=== PATIENT | female | born 1940 | race Caucasian/White ===

== ENCOUNTER 2018-11-23 00:12 | Inpatient (IN) | payer OTHER ==
[2018-11-23] VITALS (13 sets, daily range): BP systolic 114–180; BP diastolic 46–79
[~2018-11-23] VITALS: Ht 157.4 cm; Wt 42.7 kg
[2018-11-23 03:17] LABS: BASO % 0.3 % (0.0-1.0); EOS % 0.1 % (1.0-4.0); HEMATOCRIT 41.2 % (37.0-47.0); HEMOGLOBIN 13.8 g/dl (12.0-16.0); LYMPH # 1.1 10*3/uL (1.3-4.4); LYMPH % 8.1 % (27.0-41.0); MEAN CELL VOLUME 89.4 fl (81.0-99.0); MEAN CORPUSCULAR HGB 29.9 pg (27.0-31.0); MEAN CORPUSCULAR HGB CONC 33.5 g/dl (33.0-37.0); MEAN PLATELET VOLUME 11.7 fl (9.6-12.3); MONO # 0.7 10*3/uL (0.1-1.0); MONO % 5.3 % (3.0-9.0); NEUT # 11.7 10*3/uL (2.3-7.9); NEUT % 85.7 % (47.0-73.0); PLATELET COUNT AUTOMATED 158 10*3/uL (130-400); RED BLOOD COUNT 4.61 10*6/uL (4.10-5.10); RED CELL DISTRI WIDTH 13.2 % (0-14.5); WHITE BLOOD COUNT 13.7 10*3/uL (4.8-10.8)
[2018-11-23 03:32] LABS: ALBUMIN 3.6 gm/dl (3.1-4.5); ALKALINE PHOSPHATASE 103 U/L (45-117); BUN 14 mg/dl (7-24); CHLORIDE 98 mmol/L (98-107); CREATININE 0.75 mg/dL (0.55-1.02); POTASSIUM 3.7 mmol/L (3.5-5.1); SGOT/AST 12 IU/L (3-35); SGPT/ALT 22 U/L (12-78); SODIUM 135 mmol/L (136-145)
--- NOTE | 2018-11-23 04:28 | NUR ---
PER DO CITLALLI AGUILERA PT TO BE STARTED ON 1L NS AND PROVIDED INSULIN COVERAGE FOR HER BLOOOD GLUCOSE LEVEL OF 421.PT MEDICATD PER SLIDING SCALE IN EMAR WITH 22 UNITS HUMALOG SQ AND 1 LITER NS INITIATED @ 999ML/HR.
[2018-11-23 05:43] LABS: PHOSPHOROUS 2.8 mg/dL (2.5-4.9)
--- NOTE | 2018-11-23 05:44 | NUR ---
RECEIVED REPORT FROM SUSY, AWAITING BED PLACEMENT, WAS TOLD BY CUSTOMER EXPERIENCE CONSULTANT PT IS TO STAY IN ED ED HOLD "UNTIL DAYLIGHT GETS HERE AND SETTLED"
[2018-11-23 05:53] LABS: THYROID STIM HORMONE (HS) 1.76 uIU/ml (0.358-4.75)
--- NOTE | 2018-11-23 07:10 | NUR ---
REPORT RECEIVED FROM KNITTING TEACHER RN.
[2018-11-23 08:16] LABS: VITAMIN D, 25-HYDROXY 13.4 ng/mL (30-100)
--- NOTE | 2018-11-23 08:30 | NUR ---
A 78, admitted to , under the services of МАРИЯ Rivera DO with a diagnosis of SUBCAPITAL FRACTURE OF RIGHT FEMUR. Chief complaint is PAIN TO RIGHT HIP AREA. Patient arrived via bed from ER. Monitor applied. Initial assessment completed. Vital signs taken and recorded. МАРИЯ RIVERA DO notified of admission to the unit. Orders received. See assessment for past medical history, medications and allergies. Patient and/or family oriented to unit. [facility] reviewed. Clothing/patient valuable form completed. GHAZALA BUCHANAN
--- NOTE | 2018-11-23 09:51 | NUR ---
PATIENT MEDICATED WITH IV MORPHINE FOR COMPLAINTS OF 8/10 PAIN IN RIGHT LOWER EXTREMITY. WILL MONITOR FOR EFFECTIVENESS.
[2018-11-23 10:17] LABS: BILIRUBIN NEGATIVE (NEGATIVE); BLOOD 2+ (NEGATIVE); CLARITY SL CLOUDY (CLEAR); COLOR YELLOW (YELLOW); GLUCOSE 3+ (NEGATIVE); KETONE TRACE (NEGATIVE); LEUKO ESTERASE NEGATIVE (NEGATIVE); NITRITE POSITIVE (NEGATIVE); PH 6.5 (5.0-9.0); SPECIFIC GRAVITY 1.015 (1.005-1.030); UROBILINOGEN 0.2 E.U./dl (0.2-1.0)
--- NOTE | 2018-11-23 10:30 | NUR ---
PAIN MEDICATION HAS BEEN EFFECTIVE.
[2018-11-23 10:33] LABS: MUCOUS TRACE
--- NOTE | 2018-11-23 12:09 | NUR ---
SPOKE WITH ; PATIENT OK TO BE TAKEN TO SURGERY THIS AFTERNOON WITH .
--- NOTE | 2018-11-23 13:25 | NUR ---
PATIENT TAKEN DOWN TO SURGERY AT THIS TIME.
--- NOTE | 2018-11-23 17:39 | NUR ---
PHYSICAL THERAPY Nursing screen received and chart reviewed. Please order PT evaluation following orthopedic consultation/surgery. Thank you. Laura Real,PT,DPT.
--- NOTE | 2018-11-23 18:00 | NUR ---
RETURNED FROM SURGICAL UNIT. VUTAL SIGNS STABLE PATIENT COMPLAINING OF GENERALIZED DISCOMFORT. REPOSITIONED NON EFFECTIVE. MEDICATED WITH MORPHINE PER ORDERS AND REQUEST CALL LIGHT WITHIN REACH
--- NOTE | 2018-11-23 19:07 | NUR ---
NOTIFIED OF CRITICAL TROPONIN, ORDERS OBTAINED FOR REPEATS IN 3 HRS
--- NOTE | 2018-11-23 20:00 | NUR ---
SLEEPING. RESP EASY AND REG.
--- NOTE | 2018-11-23 23:12 | NUR ---
MORPHINE GIVEN PER ORDER FOR RIGHT HIP PAIN PT. RATED 8/10. ICE PACK TO RIGHT HIP. TUBE DIRECTOR RIVER RESTORATION BILAT LOWER LEGS. LOWER LEGS ELEVATED ON PILLOW. BSG 230 AND 5 UNITS INSULIN GIVEN.
[2018-11-24] VITALS: BP 120/55
--- NOTE | 2018-11-24 03:19 | NUR ---
24 HR chart check completed.
[2018-11-24 07:15] LABS: ALBUMIN 2.8 gm/dl (3.1-4.5); ALKALINE PHOSPHATASE 67 U/L (45-117); BUN 19 mg/dl (7-24); CHLORIDE 110 mmol/L (98-107); CREATININE 0.64 mg/dL (0.55-1.02); POTASSIUM 4.2 mmol/L (3.5-5.1); SGOT/AST 16 IU/L (3-35); SGPT/ALT 18 U/L (12-78); SODIUM 142 mmol/L (136-145); TOTAL PROTEIN 5.7 gm/dL (6.4-8.2)
[2018-11-24 07:46] LABS: BASO % 0.2 % (0.0-1.0); HEMATOCRIT 37.4 % (37.0-47.0); HEMOGLOBIN 12.3 g/dl (12.0-16.0); LYMPH # 1.1 10*3/uL (1.3-4.4); LYMPH % 9.3 % (27.0-41.0); MEAN CELL VOLUME 92.1 fl (81.0-99.0); MEAN CORPUSCULAR HGB 30.3 pg (27.0-31.0); MEAN CORPUSCULAR HGB CONC 32.9 g/dl (33.0-37.0); MEAN PLATELET VOLUME 12.6 fl (9.6-12.3); MONO # 0.9 10*3/uL (0.1-1.0); MONO % 7.2 % (3.0-9.0); PLATELET COUNT AUTOMATED 138 10*3/uL (130-400); RED BLOOD COUNT 4.06 10*6/uL (4.10-5.10); RED CELL DISTRI WIDTH 13.8 % (0-14.5); WHITE BLOOD COUNT 12.1 10*3/uL (4.8-10.8)
[2018-11-24 08:00] VITALS: BP 110/72
--- NOTE | 2018-11-24 10:42 | NUR ---
STEPHANIE received notice patient is wanting SNF at [facility]. MASTER IN [employer]ANCERY faxed referral, however will need PT/OT Evals to complete. Patient does require a PRECERT. -STEPHANIE Griggs
--- NOTE | 2018-11-24 11:05 | NUR ---
PHYSICAL THERAPY Physical therapy evaluation complete, 5E. Full evaluation/details to follow. Moderate complexity PT evaluation (53485) per chart review and evaluation. PT to progress transfers, gait, LE strength, and safety per POC. Recommend SNF at discharge. Thank you. Laura Real,PT,DPT
--- NOTE | 2018-11-24 11:05 | NUR ---
Occupational Therapy evaluation completed on 5 with full eval to follow. Precautions include right hip fracture and no more than 100# weight bearing on RLE w/ WW, fall risk; bed alarm, IV UE,segundo catheter,high complexity level 40722 via chart review, testing and evaluation. Recommend OT per POC and SNF to enable return home at safe and indep level. Thank you. Rita Mednia OTR/l
[2018-11-24 12:00] VITALS: BP 115/48
--- NOTE | 2018-11-24 13:06 | NUR ---
OT NOTE PATIENT IDNETIFIED BY NAME AND DATE OF . PATIENT COMPLETED 19 MINUTES OT THIS DATE. PATIENT SEATED IN RECLINER UPON ARRIVAL. PATIENT COMPLETED DYNAMIC STAND BALANCE USE FWW SUPPORT CGA USE FWW APPROX 1 MINUTE FOR OVERALL INCREASE INDEPENDENCE WITH ADL TASK. COMPLETED BUE STRENGTHENING TOWEL EXERCISES 2 SETS X 15 REPS SEATED EOB FOR INCREASE INDEPENDENCE WITH FUNCTIONAL XFER TASKS. COMPLETED SIT TO SUPINE ON BED MOD A USE RAIL. COMPLETED GROOMING SEATED UP RIGHT IN BED WASH FACE SET-UP. CONTINUE TOWARDS PLAN OF CARE. NELIA TAYLOR/Robert
--- NOTE | 2018-11-24 13:08 | NUR ---
PHYSICAL THERAPY Patient seen this pm 1:1 for therapy visit and was sitting up in bedside chair upon therapist arrival. Patient presents with continuos IV treatment and reports no c/o's pain secondary to receiving recent pain meds. Patient was very pleasant transfering sit to stand with Mod A x 1, requiring v/c for proper hand placement. Patient instructed on walker safety / navigation and ambulated 15'x 1, wh walker, MIN A, demonstrating "step to" gait pattern, uneven stride and "slouched" upright posture. Patient returned to supine in bed with increased fatigue and was very pleased with her gait performance. Patient remained in bed with her call light, tray table, telephone and bed alarm for safety. Will continue per POC as tolerated, total treatment time 14 minutes. Aubrey Madrid, VARNISH MELTER
--- NOTE | 2018-11-24 13:35 | NUR ---
Energy Efficiency Finance Manager in to talk to patient. Patient states lives at HOME with BOYFRIEND. There are NO steps in the home. Physician: NONE AT THIS TIME Pharmacy: [facility] Home health services: NONE Patient's level of ADLs: INDEPENDENT Patient has working utilities: YES DME: HAS CANE BUT DOES NOT USE IT MUCH Follow-up physician's appointment after d/c: WILL NEED TO FIND PCP AND MAKE APPOINTMENT Does patient want to access PORTAL?: NO Discharge plan PT LIVES AT HOME WITH HER BOYFRIEND. PT IS REQUESTING A REFERRAL TO [facility] TO HAVE REHAB FOR FEMUR FRACTURE. [facility]ER NOTIFIED AND WILL SEND REFERRAL. WILL CONTINUE TO FOLLOW.. ANEL ALEMAN
--- NOTE | 2018-11-24 15:10 | NUR ---
PT MEDICATED WITH NORCO AT THIS TIME UPON REQUEST FOR COMPLAINTS OF PAIN IN RIGHT HIP 09/20. WILL MONITOR.
--- NOTE | 2018-11-24 15:18 | NUR ---
PROCUREMENT ANALYST faxed PT/OT EVALs and updates to [facility]. Patient will require a PRECERT.-STEPHANIE Griggs
[2018-11-24 16:00] VITALS: BP 150/57
[2018-11-24 20:00] VITALS: BP 121/53
[2018-11-25] VITALS: BP 106/56
[2018-11-25 06:47] LABS: BUN 16 mg/dl (7-24); CHLORIDE 108 mmol/L (98-107); CREATININE 0.53 mg/dL (0.55-1.02); POTASSIUM 3.5 mmol/L (3.5-5.1); SODIUM 138 mmol/L (136-145)
[2018-11-25 06:48] LABS: BASO % 0.3 % (0.0-1.0); EOS # 0.2 10*3/uL (0.0-0.4); EOS % 1.6 % (1.0-4.0); HEMATOCRIT 37.7 % (37.0-47.0); HEMOGLOBIN 12.4 g/dl (12.0-16.0); LYMPH % 19.6 % (27.0-41.0); MEAN CELL VOLUME 90.6 fl (81.0-99.0); MEAN CORPUSCULAR HGB 29.8 pg (27.0-31.0); MEAN CORPUSCULAR HGB CONC 32.9 g/dl (33.0-37.0); MEAN PLATELET VOLUME 12.3 fl (9.6-12.3); MONO # 0.8 10*3/uL (0.1-1.0); MONO % 7.4 % (3.0-9.0); NEUT # 7.2 10*3/uL (2.3-7.9); NEUT % 70.7 % (47.0-73.0); PLATELET COUNT AUTOMATED 129 10*3/uL (130-400); RED BLOOD COUNT 4.16 10*6/uL (4.10-5.10); RED CELL DISTRI WIDTH 13.6 % (0-14.5); WHITE BLOOD COUNT 10.2 10*3/uL (4.8-10.8)
[2018-11-25 08:00] VITALS: BP 135/69
--- NOTE | 2018-11-25 08:10 | NUR ---
Alert and oriented x3. Dressing to rt hip dry and intact. Pt states she would like something for pain after she eats breakfast. States she would like norco, explained next time could be given at 0940. Verbalized understanding. States pain 4/10, states pain is increased with movement and she also has been having muscle spasms off and on which are painful as well.
--- NOTE | 2018-11-25 09:00 | NUR ---
PHYSICAL THERAPY PATIENT SEEN TODAY IN ROOM FOR 1:1 TREATMENT. SEEN FOR THER EX FOR BLE'S FOR 3 SETS OF 10 REPS INCLUDING AAROM AND AROM. BED MOBITILY TRAINING WITH MIN/MOD OF 1 AND TRANSFER TRAINING FROM BED TO CHAIR WITH MAX OF 1 WITH PWB AND 25% CUES FOR TECHNIQUE. PLACED UP IN RECLINER WITH CLIP ALARM IN PLACE, CALL LIGHT IN REACH AND NURSING MADE AWARE, EDUCATED ON EXERCISES TO DO THROUGHOUT THE DAY AND TO CALL FOR ASSISTANCE. PRINCESS BEAVER PT
--- NOTE | 2018-11-25 09:56 | NUR ---
Monitor and ivf dc per orders. Pt is sitting up in chair family visiting.
--- NOTE | 2018-11-25 11:35 | NUR ---
DR. Valadez in and examined pt. Spoke with pt regarding plan of care.
[2018-11-25 12:00] VITALS: BP 125/50
--- NOTE | 2018-11-25 13:51 | NUR ---
Medicated with norco per prn order for complaints of rt hip/ leg pain, states pain is 7/10.
--- NOTE | 2018-11-25 14:30 | NUR ---
States that norco helped to relieve pain somewhat. Denies need for anything further at this time.
[2018-11-25 16:00] VITALS: BP 125/57
--- NOTE | 2018-11-25 16:47 | NUR ---
Pt c/o pain. Notified that next dose of norco is due in about an hour but morphine was available. States pain is 7/10 at this time. Attempted to medicate with morphine but iv site leaking.
--- NOTE | 2018-11-25 17:21 | NUR ---
IV started left forearm with #20 angiocath after 1 attempts. The IV site was prepped with Chloraprep. Heparin lock attached. Sterile dressing applied. Patient tolerated precedure well. Procedure performed according to [facility] policy & procedure. Morphine iv given per prn order for pain to rt leg rated 7/10.
[2018-11-25 20:00] VITALS: BP 119/53
--- NOTE | 2018-11-25 20:26 | NUR ---
PATIENT MEDICATED WITH PRN NORCO FOR C/O PAIN. WILL MONITOR
--- NOTE | 2018-11-25 21:26 | NUR ---
MEDICATION EFFECTIVE PER PATIENT
[2018-11-26] VITALS: BP 149/65
--- NOTE | 2018-11-26 01:11 | NUR ---
PATIENT RESTING IN BED WITH NO S/S OF DISTRESS. BED IN LOWEST POSITION,CALL LIGHT IN REACH
--- NOTE | 2018-11-26 02:38 | NUR ---
medicated with prn norco for c/o pain. will monitor
[2018-11-26 06:40] LABS: BASO % 0.3 % (0.0-1.0); EOS # 0.2 10*3/uL (0.0-0.4); HEMATOCRIT 33.5 % (37.0-47.0); HEMOGLOBIN 11.3 g/dl (12.0-16.0); LYMPH % 23.1 % (27.0-41.0); MEAN CELL VOLUME 90.3 fl (81.0-99.0); MEAN CORPUSCULAR HGB 30.5 pg (27.0-31.0); MEAN CORPUSCULAR HGB CONC 33.7 g/dl (33.0-37.0); MEAN PLATELET VOLUME 12.5 fl (9.6-12.3); MONO # 0.7 10*3/uL (0.1-1.0); MONO % 7.7 % (3.0-9.0); NEUT # 5.8 10*3/uL (2.3-7.9); NEUT % 66.6 % (47.0-73.0); PLATELET COUNT AUTOMATED 119 10*3/uL (130-400); RED BLOOD COUNT 3.71 10*6/uL (4.10-5.10); RED CELL DISTRI WIDTH 13.5 % (0-14.5); WHITE BLOOD COUNT 8.7 10*3/uL (4.8-10.8)
[2018-11-26 06:44] LABS: ALBUMIN 2.4 gm/dl (3.1-4.5); BUN 11 mg/dl (7-24); CHLORIDE 108 mmol/L (98-107); CREATININE 0.44 mg/dL (0.55-1.02); POTASSIUM 3.5 mmol/L (3.5-5.1); SGOT/AST 15 IU/L (3-35); SGPT/ALT 12 U/L (12-78); SODIUM 139 mmol/L (136-145); TOTAL PROTEIN 5.3 gm/dL (6.4-8.2)
[2018-11-26 06:45] LABS: ALKALINE PHOSPHATASE 63 U/L (45-117)
[2018-11-26 08:00] VITALS: BP 118/50
--- NOTE | 2018-11-26 08:09 | NUR ---
PT SITTING UP IN BED. EATING BREAKFAST. WILL MONITOR
--- NOTE | 2018-11-26 08:30 | NUR ---
PHYSICAL THERAPY PATIENT SEEN TODAY FOR 1:1 TREATMENT IN ROOM. TREATMENT CONSISTS OF BLE THER EX INCLUDING AAROM, AROM AND SOME PROGRESSIVE RESISTIVE EXERCISES FOR NON SURGICAL LE. BED MOBILITY INCLUDNIG ROLLING L AND R AND SAT ON EDGE OF BED FOR SEATED LE EXERCISES WELL. STS AT SIDE OF BED WITH FWW FOR 3 BOUTS OF 30 SEC EACH TODAY WITH PWB ON SURGICAL LE. DID NOT WANT TO GET UP IN RECLINER YET THIS AM. AT THIS TIME PATIENT MAKING STEADY PROGRESS. D.C RECOMMEMDATIONS REMAIN FOR SNF ON D/C. PRINCESS BEAVER PT
--- NOTE | 2018-11-26 11:04 | NUR ---
PT REQUESTED AND GIVEN NORCO FOR C/O RIGHT LE PAIN. PT RATES PAIN 6/10 WILL MONITOR
[2018-11-26 12:00] VITALS: BP 155/68
--- NOTE | 2018-11-26 13:37 | NUR ---
NORCO HELPED PER PT WILL MONITOR
--- NOTE | 2018-11-26 15:46 | NUR ---
PT REQUESTED AND GIVEN NORCO FOR C/O RIGHT LE PAIN/ WILL MONITOR PT RATES PAIN 10/21
[2018-11-26 16:00] VITALS: BP 133/64
--- NOTE | 2018-11-26 18:16 | NUR ---
JOE HELPED/ WILL MONITOR
[2018-11-26 20:00] VITALS: BP 151/55
--- NOTE | 2018-11-26 20:03 | NUR ---
MEDICATED WITH PRN NORCO FOR C/O PAIN IN RIGHT HIP. WILL MONITOR
--- NOTE | 2018-11-26 21:57 | NUR ---
NORCO EFFECTIVE PER PATIENT
[2018-11-27] VITALS: BP 162/71
--- NOTE | 2018-11-27 05:44 | NUR ---
MEDICATED WITH PRN NORCO FOR C/O PAIN. WILL MONITOR
[2018-11-27 08:00] VITALS: BP 164/70
--- NOTE | 2018-11-27 08:05 | NUR ---
OCEAN RESCUE LIEUTENANT faxed updates to [facility]. Patient requires a PRECERT. Awaiting PRECERT. -STEPHANIE Griggs
--- NOTE | 2018-11-27 08:20 | NUR ---
PHYSICAL THERAPY Patient seen this am 1:1 for therapy visit and was supine in bed following breakfast upon therapist arrival. Patient voices 5/10 R hip pain / discomfort prior to treatment and was very pleasant this morning. Patient transfers supine to sit EOB with MIN A x 1, then performed several sit to stand transfers MIN A. Patient demonstrated increased confidence in completing transfers with improved rise technique. Patient ambulates with use of wh walker, CGA, 15'x 1 to bathroom then additional 25'x 1, demonstrating "step to" gait pattern and decreased stride. Patient also fatigues quickly and returned to bedside chair with call light, tray table, telephone and body alarm. Will continue per POC as tolerated, total treatment time, total treatment time 17 minutes. Aubrey Madrid, VERTICA ARCHITECT
--- NOTE | 2018-11-27 08:20 | NUR ---
OT NOTE PATIENT IDNETIFIED BY NAME AND DATE OF . PATIENT COMPLETED 15 MINUTES OT THIS DATE. PATIENT LAYING IN BED UPON ARRIVAL. PATIENT COMPLETED BED MOBILITY TASK WITH MOD A AND HEAD OF BED RAISED. SHE REQUIRED MODERATE ASSISTANCE TO PLACE RIGHT SOCK ON FOOT AND REQUIRED MIN A FOR LEFT FOOT. PATIENT PUT ON UNDERGARMENTS WITH MODERATE ASSISTANCE. FUNCTIONAL MOBILITY ACTIVITY COMPLETED AMBULATING TO BATHROOM WITH CGA. MIN A REQUIRED FOR TOILET MOBILITY AND DRESSING. DYNAMIC STANDING BALANCE ACTIVITY COMPLETED FOR 1 MINUTE STANDING AT SINK TO WASH/DRY HANDS. PATIENT EDUCATED TO AMBULATE TO BATHROOM TO INCREASE INDEPENDENCE AND ENDURANCE. EDUCATED FOR PATIENT TO USE CALL [place] FOR ASSISTANCE WITH ALL MOBILITY. TREATMENT CONCLUDED WITH PATIENT SEATED IN ARMED CHAIR WITH ALARM ON. CONTINUE WITH POC. WILL REQUIRE SNF PLACEMENT. JUDSON BURNETT OTR/L
[2018-11-27 12:00] VITALS: BP 146/55
--- NOTE | 2018-11-27 13:15 | NUR ---
OT NOTE Patient was seen this date for 15 minutes of OT treatment. Patient was seated in chair with SHANK SCOURER upon OT arrival. Patient was agreeable to OT treatment. Patient completed functional sit/stand from the recliner Min A. Patient peformed functional mobility into bathroom with ww and Min A. Patient completed toilet transfer with verbal cues for safety throughout transfer. Patient had good carryover of education. Patient able to manage clothing and perform toileting hygiene with Min A for balance only. Patient performed grooming task in stance at sink, where her dynamic balance was challenged. Patient's balance had improved by end of OT treatment, where she required CGA for functional mobility back to bed. OT treatment concluded with patient supine in bed with HOB elevated, call araya in reach. Patient would benefit from continued OT treatment to maximize independence and safety with ADLs and functional mobility/transfers. May Castro, OTR/L
--- NOTE | 2018-11-27 13:20 | NUR ---
PHYSICAL THERAPY Patient seen this pm 1:1 for therapy visit and was sitting up in bedside chair upon therapist arrival. Patient reports increased c/o of R hip pain / discomfort 6/10, along with increased stiffness from prolonged sitting. Patient transfers sit to stand from low chair surface, Min A and ambulates with use of wh walker, CGA, 25'x 1 to bathroom, demonstrating slow, antalgic gait pattern. Patient needed v/c for increased stride with head up posture and returned 15'x 1 to supine in bed. Patient remained in bed with call light, tray table, telephone and bed alarm for safety. Will continue per POC as tolerated, total treatment time 16 minutes. Aubrey Madrid, FAST FOOD DELIVERY DRIVER
--- NOTE | 2018-11-27 14:30 | NUR ---
PT WILL GO TO [facility] WHEN MEDICALLY STABLE. WILL CONTINUE TO FOLLOW.
[2018-11-27] MEDS ORDERED: GOOD SENSE ASP325 MG PO (14:44)
[2018-11-27] MEDS ORDERED: XARELTO10 MG PO (14:44)
--- NOTE | 2018-11-27 14:46 | NUR ---
PT REQUESTED AND GIVEN NORCO FOR C/O RIGHT LE PAIN. PT RATES PAIN 6/10 WILL MONITOR
[2018-11-27] MEDS ORDERED: HYDROCODONE-AC1 EAC1 PO (14:57)
--- NOTE | 2018-11-27 15:32 | NUR ---
WHIP SAWYER was notified of patient discharge. WHIP SAWYER spoke with RN Morena. WHIP SAWYER spoke with the patient and patient family. WHIP SAWYER contacted [facility] for a 4:30 hand picker. WHIP SAWYER notifid the RN, Patient, Family, and [facility] of transport time. Will fax Demographics to [facility]. -STEPHANIE Griggs
--- NOTE | 2018-11-27 16:00 | NUR ---
[facility]MEPT[facility] TO CALL [facility] TO GIVE REPORT . CALL KEPT GOING TO BIBLICAL LANGUAGES PROFESSOR VOICEMAIL MESSAGE LEFT FOR THEM TO RETURN CALL FOR REPORT
--- NOTE | 2018-11-27 16:00 | NUR ---
REFUSED DC WOUND PHOTOS
--- NOTE | 2018-11-27 16:13 | NUR ---
Discharge instructions reviewed with patient/family. Patient receptive and verbalizes understanding. Follow-up care arranged. Written instructions given to patient/family. OVIDIO GALVEZ
--- NOTE | 2018-11-27 17:24 | NUR ---
REPORT CALLED TO [facility]
--- NOTE | 2018-11-28 07:46 | NUR ---
PHYSICAL THERAPY CO-SIGN I approve of the Physical Therapy notes written above. KALIE ROMERO PT, DPT
--- NOTE | 2018-11-28 08:09 | NUR ---
OCCUPATIONAL THERAPY CO-SIGN I approve of the Occupational Therapy notes written above. STORM RAMEY OTR/Robert
== END 2018-11-27 16:13 | disposition other institution (70) | DRG 481 ==
LOC: ED 00:12 → 5E 03:14 → EDHOLD 03:14 → 5E 08:42
PROVIDERS: Emergency Medicine; Student in an Organized Health Care Education/Training Program; ADMIT Internal Medicine
PROC: 0QH634Z Insertion of Internal Fixation Device into Right Upper Femur, Percutaneous Approach (ICD-10-PCS; principal; 2018-11-23)
DX: S72.011A Unspecified intracapsular fracture of right femur, initial encounter for closed fracture (principal); R65.10 Systemic inflammatory response syndrome (SIRS) of non-infectious origin without acute organ dysfunction; R11.0 Nausea; F17.210 Nicotine dependence, cigarettes, uncomplicated; J44.9 Chronic obstructive pulmonary disease, unspecified; E78.00 Pure hypercholesterolemia, unspecified; E11.65 Type 2 diabetes mellitus with hyperglycemia; W01.0XXA Fall on same level from slipping, tripping and stumbling without subsequent striking against object, initial encounter; Y93.89 Activity, other specified; Y92.89 Other specified places as the place of occurrence of the external cause; Z71.6 Tobacco abuse counseling; Z79.4 Long term (current) use of insulin; Y99.8 Other external cause status; Z83.3 Family history of diabetes mellitus; Z82.49 Family history of ischemic heart disease and other diseases of the circulatory system; Z82.3 Family history of stroke

== ENCOUNTER → 2018-12-22 | Outpatient (CLI) | payer OTHER ==
[~2018-12-22] MED LIST: GOOD SENSE ASP325 MG PO; HYDROCODONE-AC1 EAC1 PO; XARELTO10 MG PO
== END | disposition home or self-care (01) ==
LOC: ORTHO 00:46
DX: S72.01 Unspecified intracapsular fracture of femur (principal); X58.XXXD Exposure to other specified factors, subsequent encounter

== ENCOUNTER → 2019-01-17 | Outpatient (CLI) | payer OTHER | END | disposition home or self-care (01) | LOC: ORTHO 00:25 | DX: S72.011D Unspecified intracapsular fracture of right femur, subsequent encounter for closed fracture with routine healing (principal); M16.11 Unilateral primary osteoarthritis, right hip; X58.XXXD Exposure to other specified factors, subsequent encounter ==

== ENCOUNTER → 2019-01-19 | Outpatient (CLI) | payer OTHER | END | disposition home or self-care (01) | LOC: RAD 08:22 | DX: M81.0 Age-related osteoporosis without current pathological fracture (principal); E55.9 Vitamin D deficiency, unspecified; Z78.0 Asymptomatic menopausal state ==